=== PATIENT | male | born 1960 | race Caucasian/White ===

== ENCOUNTER 2021-01-30 11:44 | Observation (INO) ==
[2021-01-30] MEDS ORDERED: Isovue-370 500 ML BOTTLE IVP ONE (12:29)
[2021-01-30 13:02] LABS: Hematocrit 47.8 % (37.5-50.1); Hemoglobin 15.7 g/dL (12.9-16.9); Mean Corpuscular HGB Conc 32.8 g/dL (31.6-35.5); Mean Corpuscular Hemoglobin 30.3 pg (28.0-33.3); Mean Corpuscular Volume 92.1 fL (83.0-100.0); Platelet Count 221 K/mcL (140-400); Red Blood Count 5.19 M/mcL (4.19-5.50); Red Cell Distribution Width 12.8 % (11.5-14.5); White Blood Count 6.8 K/mcL (4.3-11.1)
[2021-01-30 13:10] LABS: INR 1.1
[2021-01-30 13:13] LABS: Activated Partial Thrombo Time 33.7 Seconds (26.0-36.0)
[2021-01-30 13:14] LABS: BUN/Creatinine Ratio 11 (6-26); Blood Urea Nitrogen 11 mg/dL (8-23); Calcium 9.1 mg/dL (8.6-10.3); Carbon Dioxide 27 mEq/L (23-29); Chloride 104 mEq/L (98-107); Glucose 101 mg/dL (70-105); Osmolality,Calculated 288 (280-300); Sodium 139 mEq/L (136-145); eGFR For African Americans > 60 (> 60); eGFR For Non-African Americans > 60 (> 60)
[2021-01-30 13:15] LABS: Troponin I 0.03 ng/mL (< 0.04)
[2021-01-30] MEDS ORDERED: Aspirin 325 MG TABLET PO ONE (15:17)
[2021-01-30 17:19] LABS: Bilirubin,Urine Negative (Negative); Blood,Urine Negative (Negative); Clarity,Urine Clear (Clear); Color,Urine Light-Yellow (Yellow); Glucose,Urine (UA) Normal (Normal); Ketones,Urine Negative (Negative); Leukocyte Esterase,Urine Negative (Negative); Nitrite,Urine Negative (Negative); Protein,Urine Negative (Neg-Trace); Specific Gravity,Urine 1.018 (1.010-1.025); Urobilinogen,Urine Normal (Normal)
[2021-01-30] MEDS ORDERED: predniSONE 20 MG TABLET PO STA (20:28)
[2021-01-30] MEDS ORDERED: valACYclovir 500 MG TABLET PO SCH (21:00)
[2021-01-30 22:06] LABS: Adenovirus Not Detected (Not Detect); Bordetella Pertussis Not Detected (Not Detect); Chlamydophila pneumoniae Not Detected (Not Detect); Coronavirus 229E Not Detected (Not Detect); Coronavirus HKU1 Not Detected (Not Detect); Coronavirus NL63 Not Detected (Not Detect); Coronavirus OC43 Not Detected (Not Detect); Human Metapneumovirus Not Detected (Not Detect); Human Rhinovirus/Enterovirus Not Detected (Not Detect); Influenza A Subtype 2009 H1 Not Detected (Not Detect); Influenza B Not Detected (Not Detect); Mycoplasma pneumoniae Not Detected (Not Detect); Parainfluenza Virus 1 Not Detected (Not Detect); Parainfluenza Virus 2 Not Detected (Not Detect); Parainfluenza Virus 3 Not Detected (Not Detect); Parainfluenza Virus 4 Not Detected (Not Detect); Respiratory Syncytial Virus Not Detected (Not Detect); SARS-CoV-2 Not Detected (Not Detect)
[2021-01-31 05:23] LABS: Basophils % 0.5 %; Eosinophils % 0.2 %; Hematocrit 46.5 % (37.5-50.1); Hemoglobin 15.6 g/dL (12.9-16.9); Immature Granulocytes % 0.2 % (0-4); Lymphocytes # 0.7 K/mcL (0.6-4.6); Lymphocytes % 8.8 %; Mean Corpuscular HGB Conc 33.5 g/dL (31.6-35.5); Mean Corpuscular Hemoglobin 30.6 pg (28.0-33.3); Mean Corpuscular Volume 91.4 fL (83.0-100.0); Mean Platelet Volume 10.7 fL (9.4-12.4); Monocytes # 0.2 K/mcL (0.0-1.3); Monocytes % 2.4 %; Neutrophils # 7.2 K/mcL (1.6-8.9); Platelet Count 243 K/mcL (140-400); Red Blood Count 5.09 M/mcL (4.19-5.50); Red Cell Distribution Width 12.4 % (11.5-14.5); Segmented Neutrophils % 87.9 %; White Blood Count 8.2 K/mcL (4.3-11.1)
[2021-01-31 05:31] LABS: INR 1.1; Prothrombin Time 12.6 Seconds (9.4-12.1)
[2021-01-31 05:43] LABS: Chol/HDL Ratio 5.6 (0-4.9); Cholesterol 236 mg/dL (< 200); HDL Cholesterol 42 mg/dL (40-59); LDL Cholesterol,Calculated 139 mg/dL (< 100); Triglycerides 277 mg/dL (< 150); Troponin I < 0.03 ng/mL (< 0.04)
[2021-01-31] MEDS: Artificial Tears SOLN 15 ML BOTTLE BOTH EYES SCH (05:51)
[2021-01-31] MEDS ORDERED: *HR* Enoxaparin 40 MG/0.4 ML SYRINGE SQ SCH (06:00)
[2021-01-31 06:05] LABS: Folate 9.6 ng/mL (3.0-16.0)
[2021-01-31 06:43] VITALS: BP 145/74; PULSE 63; TEMP 98; O2SAT 94
[2021-01-31] MEDS ORDERED: Perflutren Lipid Microsphere 1.3 ML in 0.9 % Sodium Chloride 8.7 ML IVP PRN (07:41)
[2021-01-31] MEDS ORDERED: Aspirin Enteric Coated 81 MG Tablet PO SCH (09:00)
[2021-01-31 09:23] LABS: Estimated Average Glucose 123 mg/dl; Hemoglobin A1C 5.9 %
[2021-01-31 09:26] LABS: Alanine Aminotransferase 18 Units/L (7-52); Albumin 4.2 g/dL (3.5-5.7); Albumin/Globulin Ratio 1.6 (1.1-2.2); Alkaline Phosphatase 73 Units/L (34-104); Aspartate Amino Transferase 16 Units/L (13-39); BUN/Creatinine Ratio 16 (6-26); Bilirubin,Total 0.5 mg/dL (0.3-1.0); Blood Urea Nitrogen 18 mg/dL (8-23); Calcium 9.1 mg/dL (8.6-10.3); Carbon Dioxide 23 mEq/L (23-29); Chloride 104 mEq/L (98-107); Globulin 2.7 g/dL (2.4-3.5); Glucose 184 mg/dL (70-105); Magnesium 2.1 mg/dL (1.6-2.6); Osmolality,Calculated 289 (280-300); Phosphorous 1.7 mg/dL (2.7-4.5); Potassium 4.7 mEq/L (3.5-5.1); Sodium 136 mEq/L (136-145); Total Protein 6.9 g/dL (6.4-8.9); eGFR For African Americans > 60 (> 60); eGFR For Non-African Americans > 60 (> 60)
[2021-01-31 09:45] LABS: Thyroid Stimulating Hormone 1.295 mcIU/mL (0.340-5.600)
[2021-01-31] MEDS ORDERED: levETIRAcetam 250 MG TABLET PO SCH ×2 (18:00)
== END 2021-01-31 15:37 | disposition home or self-care (01) ==
LOC: SUATTDRO → EMEROOARM 11:44 → 4WAOSI 11:44
PROVIDERS: ADMIT Internal Medicine; ATTEND Internal Medicine